=== PATIENT | female | born 1935 | race Caucasian/White ===

== ENCOUNTER 2017-07-18 07:56 | Day surgery (SDC) | payer MEDICARE, OTHER ==
[2017-07-18] MEDS ORDERED: SOD CHLORIDE 0.9% 1,000 ML IV (08:30)
[2017-07-18] MEDS: LIDOCAINE 1%/EPI 30 ML INJ ×2 (10:50→11:39)
[2017-07-18] MEDS: CEFAZOLIN 1 GM/50 ML (PMX) 50 ML IVPB ×2 (10:50→11:00)
[2017-07-18] MEDS: HEPARIN 1000 UNITS/ML 10 ML INJ (10:55)
[2017-07-18] MEDS: MIDAZOLAM 1 MG/ML 2 ML INJ (11:30)
[2017-07-18] MEDS: SOD CHLORIDE 0.9% 500 ML (11:35)
[2017-07-18] MEDS: FENTAnyl 50 MCG/ML VIAL (11:35)
[2017-07-18] MEDS: POLYMYXIN/BACITRACIN 1L IRRIG IRR (11:45)
[2017-07-18] MEDS ORDERED: HYDROCODONE/APAP (5/325) TAB PO (12:30)
== END 2017-07-18 15:20 | disposition home or self-care (01) ==
LOC: SDS 07:56
DX: C50.911 Malignant neoplasm of unspecified site of right female breast (principal)
CPT/HCPCS: 36561; 76942; 93306

== ENCOUNTER 2018-01-18 09:20 | Observation (INO) | payer MEDICARE, OTHER ==
[2018-01-16 15:11] LABS: ADD MAN DIFF? NO
[2018-01-16 15:13] LABS: BASOPHILS % 0.4 % (0.0-2.0); EOSINOPHILS # 0.1 10^3/ul (0.0-0.5); EOSINOPHILS % 2.5 % (0.0-7.0); HEMATOCRIT 37.7 % (37.0-47.0); HEMOGLOBIN 12.1 g/dl (12.0-16.0); LYMPHOCYTES # 1.4 10^3/ul (0.8-2.9); LYMPHOCYTES % 24.9 % (15.0-51.0); MEAN CORPUSCULAR HEMOGLOBIN 29.2 pg (29.0-33.0); MEAN CORPUSCULAR HGB CONC 32.1 g/dl (32.0-37.0); MEAN CORPUSCULAR VOLUME 91.1 fl (82.0-101.0); MEAN PLATELET VOLUME 8.4 fl (7.4-10.4); MONOCYTE # 0.4 10^3/ul (0.3-0.9); MONOCYTES % 6.2 % (0.0-11.0); NEUTROPHIL # 3.7 10^3/ul (1.6-7.5); NEUTROPHILS % 65.8 % (39.0-77.0); PLATELET COUNT 190 10^3/UL (140-415); RED BLOOD COUNT 4.14 10^6/ul (4.20-5.40); RED CELL DISTRIBUTION WIDTH 15.6 % (11.5-14.5)
[2018-01-16 15:13] LABS: WHITE BLOOD COUNT 5.7 10^3/ul (4.8-10.8)
[2018-01-16 15:32] LABS: ALANINE AMINOTRANSFERASE 16 IU/L (13-69); ALBUMIN 3.9 g/dl (3.3-4.9); ALBUMIN/GLOBULIN RATIO 1.18; ALKALINE PHOSPHATASE 65 IU/L (42-121); ANION GAP 12 (8-16); ASPARTATE AMINO TRANSFERASE 18 IU/L (15-46); BILIRUBIN,INDIRECT 0.5 mg/dl (0-1.1); BILIRUBIN,TOTAL 0.5 mg/dl (0.2-1.3); BLOOD UREA NITROGEN 20 mg/dl (7-20); CALCIUM 8.9 mg/dl (8.4-10.2); CARBON DIOXIDE 27 mmol/L (21-31); CHLORIDE 103 mmol/L (97-110); CREATININE 0.68 mg/dl (0.44-1.00); GLUCOSE 101 mg/dl (70-220); POTASSIUM 4.3 mmol/L (3.5-5.1); SODIUM 138 mmol/L (135-144); TOTAL PROTEIN 7.2 g/dl (6.1-8.1)
[2018-01-16 15:42] LABS: PROTIME 12.2 Sec (11.9-14.9)
[~2018-01-18 09:20] MED LIST: SOD CHLORIDE 0.9% 1,000 ML IV
[2018-01-18] MEDS ORDERED: CEFAZOLIN 2 GM/50 ML (PMX) 50 ML IVPB (10:00)
[2018-01-18] MEDS ORDERED: FENTAnyl 50 MCG/ML VIAL IV (10:30)
[2018-01-18] MEDS ORDERED: ONDANSETRON 4 MG INJ IV ×2 (10:30→12:00)
[2018-01-18] MEDS ORDERED: PROCHLORPERAZINE 10 MG INJ IV (10:30)
[2018-01-18] MEDS ORDERED: MEPERIDINE 25 MG INJ IV (10:30)
[2018-01-18] MEDS ORDERED: HYDROmorphONE 1 MG/5 ML IV SYRINGE IV (10:30)
[2018-01-18] MEDS ORDERED: DIPHENHYDRAMINE 50 MG INJ IV (10:30)
[2018-01-18] MEDS ORDERED: CEFAZOLIN 1 GM INJ (10:48)
[2018-01-18] MEDS ORDERED: FENTAnyl 50 MCG/ML VIAL (10:49)
[2018-01-18] MEDS ORDERED: LIDOCAINE 2% (SDV) 5 ML INJ (10:49)
[2018-01-18] MEDS ORDERED: PROPOFOL 20 ML (10:49)
[2018-01-18] MEDS ORDERED: FAMOTIDINE 20 MG INJ (10:51)
[2018-01-18] MEDS ORDERED: DEXAMETHASONE 4 MG/ML 1 ML INJ (10:51)
[2018-01-18] MEDS ORDERED: ONDANSETRON 4 MG INJ (10:51)
[2018-01-18] MEDS ORDERED: PHENYLephrine (100 MCG/ML) 5ML SYG (10:56)
[2018-01-18] MEDS ORDERED: EPHEDrine SULFATE 50 MG/5 ML SYG (11:02)
[2018-01-18] MEDS ORDERED: ACETAMINOPHEN 1000MG/100ML IV 100 ML (11:34)
[2018-01-18] MEDS ORDERED: ACETAMINOPHEN 1000MG/100ML IV 100 ML IVPB (12:00)
[2018-01-18] MEDS ORDERED: morphine 2 MG INJ IV (12:00)
[2018-01-18] MEDS: D5W-0.45 NACL + KCL 20 MEQ 1,000 ML IV (15:05)
[2018-01-18] MEDS: LOSARTAN 25 MG TAB PO (18:00)
[2018-01-18] MEDS: CHOLECALCIFEROL 2,000 UNIT CAP PO (18:16)
[2018-01-19] MEDS: D5W-0.45 NACL + KCL 20 MEQ 1,000 ML IV ×3 (00:21→09:47)
[2018-01-19] MEDS: LEVOTHYROXINE 88 MCG TAB PO (06:04)
[2018-01-19 06:14] LABS: ADD MAN DIFF? NO
[2018-01-19 06:21] LABS: WHITE BLOOD COUNT 8.6 10^3/ul (4.8-10.8)
[2018-01-19 06:21] LABS: BASOPHILS % 0.2 % (0.0-2.0); EOSINOPHILS % 0.3 % (0.0-7.0); HEMATOCRIT 30.1 % (37.0-47.0); HEMOGLOBIN 9.9 g/dl (12.0-16.0); MEAN CORPUSCULAR HEMOGLOBIN 29.6 pg (29.0-33.0); MEAN CORPUSCULAR HGB CONC 32.9 g/dl (32.0-37.0); MEAN CORPUSCULAR VOLUME 90.1 fl (82.0-101.0); MEAN PLATELET VOLUME 9.5 fl (7.4-10.4); MONOCYTE # 0.5 10^3/ul (0.3-0.9); MONOCYTES % 5.3 % (0.0-11.0); PLATELET COUNT 146 10^3/UL (140-415); RED BLOOD COUNT 3.34 10^6/ul (4.20-5.40); RED CELL DISTRIBUTION WIDTH 15.4 % (11.5-14.5)
[2018-01-19 07:08] LABS: ANION GAP 9 (8-16); BLOOD UREA NITROGEN 12 mg/dl (7-20); CARBON DIOXIDE 25 mmol/L (21-31); CHLORIDE 107 mmol/L (97-110); CREATININE 0.68 mg/dl (0.44-1.00); GLUCOSE 142 mg/dl (70-220); SODIUM 137 mmol/L (135-144)
[2018-01-19] MEDS: LOSARTAN 25 MG TAB PO (08:27)
[2018-01-19] MEDS: CHOLECALCIFEROL 2,000 UNIT CAP PO (08:27)
[2018-01-19] MEDS: FOLIC ACID 0.4 MG TAB PO (08:27)
== END 2018-01-19 15:50 | disposition home or self-care (01) ==
LOC: SDS 09:20 → 2NE 13:52 → SDS 11:43 → REC 16:36 → 2NE 16:46
DX: C50.911 Malignant neoplasm of unspecified site of right female breast (principal); I10 Essential (primary) hypertension; E03.9 Hypothyroidism, unspecified; M06.9 Rheumatoid arthritis, unspecified; Z86.73 Personal history of transient ischemic attack (TIA), and cerebral infarction without residual deficits
CPT/HCPCS: 19303; 71045; 80048; 80053; 85025; 85610; 85730; 88307; 93005; 99217